=== PATIENT | female | born 1985 | race Caucasian/White ===

== ENCOUNTER 2021-09-20 10:30 | Outpatient (RCR) | payer OTHER, SELFPAY | END 2021-09-20 14:28 | disposition home or self-care (01) | PROVIDERS: Visit Provider Advanced Practice Midwife | DX: N39.3 Stress incontinence (female) (male) (principal); R27.8 Other lack of coordination; R10.2 Pelvic and perineal pain; Z51.89 Encounter for other specified aftercare | CPT/HCPCS: 97110; 97112; 97535 ==

== ENCOUNTER 2023-08-03 08:08 | Outpatient (CLI) | payer OTHER, SELFPAY ==
--- OUTSIDE RECORDS SUMMARY | 2023-08-22 15:45 | XMS_ITS | Clinical Summary ---
Author Organization [employer] [facility] Address [place], [place] [address] Care Team Providers Care Curator Of Education Name Role Phone Pcp, No Primary Care Provider Unavailabl e Allergies Active Allergy Reactions Criticality Noted Date Comments Amoxicillin-Pot Clavulanate Hives 03/06/19 22 Medications Medication Sig Dispensed Refills Start Date End Date Status L.acid/L.casei/B.bif /B.kelvin/FOS (PROBIOTIC BLEND ORAL) Take by mouth. Active doxycycline monohydrate (MONODOX) 100 mg capsuleIndications:S ebaceous cyst of axilla Take 1 Capsule (100 mg) by mouth two times daily. 20 Capsule 01/03/2023 Active multivitamin (MVI) tablet Take 1 Tablet by mouth once daily. 0 01/09/2023 Active clindamycin 1% (CLEOCIN-T) 1 % gelIndications:Hidra denitis suppurativa Apply topically to affected area(s) two times daily. 60 g 11 02/15/2023 Active Encounters Date Type Department Care Team Description 08/01/2023 Lab Requisition [facility] [phone] Nicole Ragsdale CNM from Last 3 Months Immunizations Name Administration Dates Next Due COVID-19 Vaccine Spikevax (M oderna 50mcg/0.5mL) 12YO+ Formula PF 01/09/2023 DTP 07/20/1992, 0,03/31/1988,02/13,1987 HIB PRP-T (ActHIB,Hiberix) 06/11/1998,04/12/1989 Hepatitis B (Peds) 06/11/1998,12/30/1997, 998 Human Papilloma Virus Vaccine 12/25/2007 Influenza, IIV3 (Age >=3 years) 12/05/2013,12/19 Influenza, IIV4 11/19/2022, 2,12/03/2020,12/03,11/22/2016 Influenza,CCIIV4 PRESERV FREE 11/22/2018 MMR 07/20/1992,01/31/1989 Meningococcal Vaccine (Menactra) 08/21/2005 Oral Polio Vaccine 07/20/1992, 0,02/14/1988,12/05 Td (Age >=7 Years) 10/23/1999 Tdap 04/22/2021, 0,01/04/2018,08/21 Family History Medical History Relation Name Comments Cancer-breast Maternal Aunt Bilateral breast cancer Paternal Aunt Relation Name Status Comments Maternal Aunt Alive Paternal Aunt Alive Social History Tobacco Use Types Packs/Day Years Used Date Smoking Tobacco: Never Smokeless Tobacco: Never Alcohol Use Standard Drinks/Week Comments Yes 2 (1 standard drink = 0.6 oz pur e alcohol) PHQ-2 Answer Date Recorded PHQ-2 TOTAL SCORE 0 01/09/2023 Social Connections Answer Date Recorded Frequency of Communication with Friends and Fami ly 0 12/18/2022 Financial Resource Strain Answer Date R ecorded Difficulty of Paying Living Expenses 3 12/18/2022 Difficulty of Paying Living Expenses Not on file 12/18/2022 Food Insecurity Answer Date Recorded Worried About Running Out of Food in the Last Ye ar 1 12/18/2022 Transportation Needs Answer Date Record ed Lack of Transportation (Medical) 1 12/18/2022 Housing Stability Answer Date Recorded Unable to Pay for Housing in the Last Year 1 12/18/2022 Sex and Gender Information Value Date Recorded Sex Assigned at Not on file Gender Identity Not on file Sexual Orientation Not on file Obstetrics History Para Term AB IAB SAB Ectopic Multiple Livin g Live Births 2 1 1 1 1 Date Outcome GA Total Labor Labor/2nd/3rd Weight Sex Type Anes PTL Brianna A1 A5 Name Clin 2019 Term 41w 3d 3.83 kg (8 lb 7 oz) M VAGINA L DANIELLE Epidur al Livin g gareth ano Delivery Location:[facility] Last Filed Vital Signs Vital Sign Reading Time Taken Comments Blood Pressure 106/74 01/09/2023 4:07 PM BLUNGER MACHINE OPERATOR Pulse 64 01/09/2023 4:07 PM BLUNGER MACHINE OPERATOR Temperature 36.6 ??C (97.8 ??F) 12/18/2022 8:04 AM CD T Respiratory Rate 16 12/18/2022 8:04 AM CDT Oxygen Saturation 100% 12/18/2022 8:04 AM CDT Inhaled Oxygen Concentration - - Weight 72.1 kg (159 lb) 01/09/2023 4:07 PM BLUNGER MACHINE OPERATOR Height 167.6 cm (5' 6) 01/09/2023 4:07 PM BLUNGER MACHINE OPERATOR Body Mass Index 25.66 01/09/2023 4:07 PM BLUNGER MACHINE OPERATOR Plan of Treatment Upcoming Encounters Date Type Department Care Team (Late st Contact Info) Description 09/28/2023 3:20 PM CDT Office Visit [facility] [address] [address] Margaret Hernandez MD [address] [address] Health Maintenance Due Date Last Done Comments Influenza for age 9-49 11/04/2023 3, 12/02/2021, 12/03/2020, Additional history exists BMI (ht and wt on same day) for age 18+ 01/10/2024 01/09/2023, 12/18/2022 Depression screening for age 12+ 01/10/2024 01/09/2023 Pap test for age 21-65 07/31/2026 4, 08/01/2023, 12/07/2020, Additional history exists Tetanus booster 04/22/2031 04/22/2021, 09/03, 01/04/2018, Additional history exists Tdap Completed 04/22/2021, 09/03, 01/04/2018, Additional history exists HIV for age 15-65 Completed 01/05/2023 Hepatitis C screening for age 18-79 Completed 01/05/2023 COVID-19 vaccine series Completed 01/10/20 23, 12/02/2021, 12/03/2020, Additional history exists Pneumococcal series for age 6-64 Aged Out No longer eligible based on patient's age to complete this topic Procedures Procedure Name Priority Date/Time Associated Diagnosis Comments LAB TRACKING EVENT Routine 08/01/2023 10 :00 AM CDT ICE GRINDER THIN PREP PAP SCREEN IMAGED Routine 08/01/2023 10:00 AM CDT HPV THIN PREP Routine 08/01/2023 10:00 AM CDT ANTI HIV 1/2 Routine 01/05/2023 9:28 AM CDT Routine general medical examination at a health care facility ANTI HCV Routine 01/05/2023 9:28 AM CDT Routine general medical examination at a health care facility from Last 3 Months or Most Recently Relevant to Health Maintenance Results * LAB TRACKING EVENT (08/01/2023 10:00 AM CDT) Other (Other) Client Collect / Unknown 08/01/2023 10:00 AM CDT 08/01/2023 4:52 PM CDT Nicole Ragsdale CNM LAB BILL ONLY [facility] [address] [place] [address], * ICE GRINDER THIN PREP PAP SCREEN IMAGED (08/01/2023 10:00 AM CDT) Case Report Gynecologic Cytology Report ? Case: [id number] ? Authorizing Provider: ??Nicole Ragsdale CNM ? Collected: ? 08/01/2023 1000 ? Ordering Location: ? [facility] ?Received: ?08/02/2023 1518 ? First Screen: ?Alexandr Nazario ? Specimen: ?ICE GRINDER ThinPrep Vial Screening, Cervical ? 08/13/2023 4:11 PM CDT [facility] INTERPRETATION/ RESULT NEGATIVE FOR INTRAEPITHELIAL LESION OR MALIGNANCY (NIL) (none) 08/13/2023 4:11 PM CDT [facility] IMEN ADEQUACY Satisfactory for evaluation Endocervical component present 08/13/2023 4:11 PM CDT [facility] HPV REQUEST HPV and PAP 08/13/2023 4:11 PM CDT [facility] Date of LMP 07/14/2023 08/13/2023 4:11 PM CDT [facility] LAB[facility] Last Pap Date 12/07/2020 08/13/2023 4:11 PM CDT [facility] Last Pap Result NIL 4:11 PM CDT [facility] Abnormal Pap or Crooks Bx in last 5 years No 08/13/2023 4:11 PM CDT [facility] Menstrual Status Regular Periods 08/13/2023 4:11 PM CDT [facility] Crooks Bx Done Today No 08/13/2023 4:11 PM CDT [facility] Additional Information 08/13/2023 4:11 PM CDT [facility] Comment: Interpreted at [facility] - [address], [place] [address] Automated Review Successful 08/13/2023 4:11 PM CDT [facility] Comment:Specimen processed s uccessfully by automated fiber machine tender device, ThinPrep Imaging System, [employer] ANCILLARY TESTING ICE GRINDER HPV Ordered, Please see separate report 08/13/2023 4:11 PM CDT [facility] Note The pap test is a screening technique, not a diagnostic procedure. It is used primarily to screen for squamous cancers and precursor lesions. Published studies have shown that it is subject to both false negative and false positive results. The pap test should not be used as the sole means to diagnose or exclude pre-malignant and malignant lesions. 08/13/2023 4:11 PM CDT [facility] Other (Cervical) 08/01/2023 10:00 AM CDT 08/02/2023 3:18 PM CDT Nicole Ragsdale [facility] PATHOLOGY/CYTOLOGY [facility] [address] [place] [address], * HPV HIGH RISK (08/01/2023 10:00 AM CDT) TYPE 16 Negative Negative 08/07/2023 8:10 AM CDT [facility] TR[facility] LABORATORY TYPE 18 Negative Negative 08/07/2023 8:10 AM CDT [facility] LAB[facility] OTHER HIGH RISK TYPES Negative Negative 08/07/2023 8:10 AM CDT [facility] Other (Other) 08/01/2023 10: 00 AM CDT 08/06/2023 10:00 AM CDT Narrative [facility] - 08/07/2023 8:10 AM CDT HPV types 16, 18, 31, 33, 35, 39, 45, 51, 52, 56, 58, 59, 66 and 68 DNA were undetectable or below the pre-set threshold. Methodology: Robbie Garcia 4800 HPV Test Nicole SANTOSM MICROBIOLOGY [facility] [address] [place] [address], * ANTI HCV (01/05/2023 9:28 AM CDT) HEPATITIS C ANTIBODY Non-Reacti ve Non-React dorothy 01/05/2023 2:12 PM CDT [facility] Comment:Please note, per www .CDC.gov: If a patient is known to be at high risk of HCV infection, or is symptomatic, and the physician's suspicion of HCV infection is high, HCV RNA testing is often employed and is of diagnostic value, even after an initial negative anti-HCV test result. Blood BLOOD SPECIMEN / Unknown Venipuncture / Unknown 01/05/2023 9:28 AM CDT 01/05/2023 9:29 AM CDT Tali Cabrera MD SEND OUTS Performing Organization Address City/[facility]/ZIP Co de Phone Number [facility] [address] [place] [address], [place] * ANTI HIV 1/2 (01/05/2023 9:28 AM CDT) Pathologist [facility] HIV-1/HIV-2 SCREEN Non-Reacti ve Non-Reacti ve 01/05/2023 2:16 PM CDT [facility] Comment:HIV-1 p24 and HIV-1/ HIV-2 Ab Not Detected. Blood BLOOD SPECIMEN / Unknown Venipuncture / Unknown 01/05/2023 9:28 AM CDT 01/05/2023 9:29 AM CDT Tali Cabrera MD SEND OUTS [facility] [address] [place] [address], from Last 3 Months or Most Recently Relevant to Health Maintenance Care Teams Curator Of Education Relationship Specialty Start Date End Date Pcp, No . PCP - General 12/18/22
--- OUTSIDE RECORDS SUMMARY | 2023-08-22 15:45 | XMS_ITS | Clinical Summary ---
Author Organization [facility] Address [address] [place] [address] Care Team Providers Care Negative Retoucher Name Role Phone Christian Centeno MD Primary Care Provider Allergies Active Allergy Reactions Criticality Noted Date Comments Amoxicillin-Pot Clavulanate Hives 12/27/19 20 Medications Medication Sig Dispensed Refills Start Date End Date Status vitamin iron-folic acid 27mg-0.8mg ( S) 27 mg iron- 800 mcg Tab tablet [ VITAMIN IRON-FOLIC ACID 27MG-0.8MG ( S) 27 MG IRON- 800 MCG TAB TABLET] Take 1 tablet by mouth daily. 12/27/2019 Active ferrous sulfate 325 (65 FE) MG tablet [FERROUS SULFATE 325 (65 FE) MG TABLET] Take 1 tablet by mouth daily with breakfast. 12/27/2019 Active ibuprofen (ADVIL,MOTRIN) 600 MG tabletIndications:Spo ntaneous vaginal delivery, care and examination of lactating mother [IBUPROFEN (ADVIL,MOTRIN) 600 MG TABLET] Take 1 tablet (600 mg total) by mouth every 6 (six) hours as needed for pain. 30 tablet 0 12/29/2019 Active Active Problems Problem Noted Date Diagnosed Date Single liveborn infant delivered vaginally 12/29 12/27/2019 Immunizations Name Administration Dates Next Due COVID-19 MONOVALENT 12+ (Pfizer) 04/23/2020,03/06 Family History Medical History Relation Comments Diabetes Maternal Aunt Hypertension Paternal Uncle Relation Status Comments Maternal Aunt Paternal Uncle Social History Tobacco Use Types Packs/Day Years Used Date Smoking Tobacco: Never Smokeless Tobacco: Never Alcohol Use Standard Drinks/Week Comments Not Currently 0 (1 standard drink = 0.6 oz pur e alcohol) Adolescent Education Answer Date Record ed Getting School Help Needed Not on file 11/25 Sex and Gender Information Value Date Recorded Sex Assigned at Not on file Gender Identity Not on file Sexual Orientation Not on file Last Filed Vital Signs Vital Sign Reading Time Taken Comments Blood Pressure 110/66 01/01/2020 11:06 AM CDT Pulse 76 01/01/2020 11:06 AM CDT Temperature 36.7 ??C (98.1 ??F) 01/01/2020 11:06 AM C DT Respiratory Rate 16 01/01/2020 11:06 AM CDT Oxygen Saturation 98% 01/01/2020 11:06 AM CDT Inhaled Oxygen Concentration - - Weight 90.7 kg (200 lb) 12/27/2019 5:19 PM CDT Height 162.6 cm (5' 4) 12/27/2019 5:19 PM CDT Body Mass Index 34.33 12/27/2019 5:19 PM CDT Plan of Treatment Not on file Care Teams Negative Retoucher Relationship Specialty Start Date End Date [facility] [address] [place] [id number] PCP - General manager copy 12/27/19
--- OUTSIDE RECORDS SUMMARY | 2023-08-22 15:45 | XMS_ITS | Referral Summary ---
Author Organization [facility] Address [address] [place] [address] Care Team Providers Care Seam Finisher Name Role Phone Christian Centeno MD Primary [...] Next Due COVID-19 MONOVALENT 12+ (Pfizer) 04/23/2020,03/06 Social History Tobacco Use Types Packs/Day Years [...] of Treatment Not on file Care Teams Seam Finisher Relationship Specialty Start Date End Date Jacobo, Christian Nair MD [address] [address] PCP - General sheet rock nailer 12/27/19
== END 2023-08-03 08:09 | disposition home or self-care (01) ==
LOC: NFLDREF 08-22 15:44
PROVIDERS: Visit Provider Advanced Practice Midwife
DX: Z13.220 Encounter for screening for lipoid disorders (principal); Z11.59 Encounter for screening for other viral diseases; Z13.29 Encounter for screening for other suspected endocrine disorder
CPT/HCPCS: 80061; 84443; 86704; 86706; 86803; 87340

== ENCOUNTER 2023-10-26 08:59 | Outpatient (CLI) | payer OTHER, SELFPAY ==
--- OUTSIDE RECORDS SUMMARY | 2023-10-26 09:02 | XMS_ITS | Clinical Summary ---
Author Organization [facility] Address [address] [place] [address] Care Team Providers Care Geological Sample Tester Name Role Phone Christian Centeno MD Primary [...] of Treatment Not on file Care Teams Geological Sample Tester Relationship Specialty Start Date End Date [facility] [address] [place] [id number] PCP - General rubber covering machine operator 12/27/19
--- OUTSIDE RECORDS SUMMARY | 2023-10-26 09:02 | XMS_ITS | Clinical Summary ---
Author Organization [employer] [facility] Address [place], [place] [address] Care Team Providers Care Research Neuropsychologist Name Role Phone Pcp, No Primary Care Provider Unavailabl e Allergies Active Allergy Reactions Criticality Noted Date Comments Amoxicillin-Pot Clavulanate Hives 03/06/19 22 Medications Medication Sig Dispensed Refills Start Date End Date Status L.acid/L.casei/B. bif/B.kelvin/FOS (PROBIOTIC BLEND ORAL) Take by mouth. Active doxycycline monohydrate (MONODOX) 100 mg capsuleIndication s:Sebaceous cyst of axilla Take 1 Capsule (100 mg) by mouth two times daily. 20 Capsule 01/03/2023 Active multivitamin (MVI) tablet Take 1 Tablet by mouth once daily. 0 01/09/2023 Active clindamycin 1 % gelIndications:Hi dradenitis suppurativa Apply topically to affected area(s) two times daily. 60 g 11 09/28/2023 Active clindamycin 1% (CLEOCIN-T) 1 % gelIndications:Hi dradenitis suppurativa Apply topically to affected area(s) two times daily. 60 g 11 02/15/2023 09/28/2023 Discontinue d(Reorder (E-cancel not sent)) Encounters Date Type Department Care Team Description 09/28/2023 3:20 PM CDT Office Visit [facility] [address] [address] Magraret Hernandez MD Derm Problem 09/28/2023 Travel 09/26/2023 Travel 08/01/2023 Lab Requisition [facility] [phone] Nicole Ragsdale CNM from Last 3 Months Immunizations Name Administration Dates Next Due COVID-19 Vaccine Spikevax (M oderna 50mcg/0.5mL) 12YO+ [id number] Formula PF 01/09/2023 DTP 07/20/1992, 0,03/31/1988,02/13,1987 HIB [...] Epidur al Livin g gareth ano Delivery Location:[facility] Last Filed Vital Signs Vital Sign Reading Time Taken Comments Blood Pressure 106/74 01/09/2023 4:07 PM DYE REEL OPERATOR HELPER Pulse 64 01/09/2023 4:07 PM DYE REEL OPERATOR HELPER Temperature 36.6 ??C (97.8 ??F) 12/18/2022 8:04 AM CD T Respiratory Rate 16 12/18/2022 8:04 AM CDT Oxygen Saturation 100% 12/18/2022 8:04 AM CDT Inhaled Oxygen Concentration - - Weight 72.1 kg (159 lb) 01/09/2023 4:07 PM DYE REEL OPERATOR HELPER Height 167.6 cm (5' 6) 01/09/2023 4:07 PM DYE REEL OPERATOR HELPER Body Mass Index 25.66 01/09/2023 4:07 PM DYE REEL OPERATOR HELPER Plan of Treatment Health Maintenance Due Date Last Done Comments [...] EVENT Routine 08/01/2023 10 :00 AM CDT PROTECTIVE SIGNAL INSTALLER THIN PREP PAP SCREEN IMAGED Routine 08/01/2023 [...] CDT Nicole Ragsdale CNM LAB BILL ONLY [facility] [address] [place] [id number], * PROTECTIVE SIGNAL INSTALLER THIN PREP PAP SCREEN IMAGED (08/01/2023 10:00 AM CDT) Case Report Gynecologic Cytology Report ? Case: [id number] ? Authorizing Provider: ??Nicole Ragsdale CNM ? Collected: ? 08/01/2023 1000 ? Ordering Location: ? [facility] ?Received: ?08/02/2023 1518 ? First Screen: ?Alexandr Nazario ? Specimen: ?PROTECTIVE SIGNAL INSTALLER ThinPrep Vial Screening, Cervical ? 08/13/2023 4:11 PM CDT [facility] ENTR[facility] LABORATORY INTERPRETATION/ RESULT NEGATIVE FOR INTRAEPITHELIAL LESION OR MALIGNANCY (NIL) (none) 08/13/2023 4:11 PM CDT [facility] EN[facility] LAB[facility] IMEN ADEQUACY Satisfactory for evaluation Endocervical component present 08/13/2023 4:11 PM CDT [facility] LAB[facility] HPV REQUEST HPV and PAP 08/13/2023 4:11 PM CDT [facility]- ENTRAL LABORATORY Date of LMP 07/14/2023 08/13/2023 4:11 PM CDT [facility]C EN[facility]AL LABORATORY Last Pap Date 12/07/2020 08/13/2023 4:11 PM CDT [facility] EN[facility]AL LABORAT[facility] Last Pap Result NIL 4:11 PM CDT [facility] EN[facility] LAB[facility]ATORY Abnormal Pap or [place] Bx in last 5 years No 08/13/2023 4:11 PM CDT [facility]C ENTRAL LABORATORY Menstrual Status Regular Periods 08/13/2023 4:11 PM CDT [facility] ENTR[facility] LABORATORY [place] Bx Done Today No 08/13/2023 4:11 PM CDT [facility]-C ENTRAL LABORATORY Additional Information 08/13/2023 4:11 PM CDT [facility] ENTRPA LABORATORY Comment: Interpreted at [facility] - [address] [facility] [address], [place] [address] Automated Review Successful 08/13/2023 4:11 PM CDT [facility] Comment:Specimen processed s uccessfully by automated cad specialist device, ThinPrep Imaging System, [employer] ANCILLARY TESTING PROTECTIVE SIGNAL INSTALLER HPV Ordered, Please see separate report 08/13/2023 4:11 PM CDT [facility] Note The pap test is a [...] and malignant lesions. 08/13/2023 4:11 PM CDT [facility] Other (Cervical) 08/01/2023 10:00 AM CDT 08/02/2023 3:18 PM CDT Nicole Ragsdale CNM PATHOLOGY/CYTOLOGY [facility] [address] [place] [address], * HPV HIGH RISK (08/01/2023 10:00 AM CDT) TYPE 16 Negative Negative 08/07/2023 8:10 AM CDT [facility] LABORAT[facility] TYPE 18 Negative Negative 08/07/2023 8:10 AM CDT [facility] OTHER HIGH RISK TYPES Negative Negative 08/07/2023 8:10 AM CDT [facility] Other (Other) 08/01/2023 10: 00 AM CDT 08/06/2023 10:00 AM CDT Narrative [facility] - 08/07/2023 8:10 AM CDT HPV types 16, 18, 31, 33, 35, 39, 45, 51, 52, 56, 58, 59, 66 and 68 DNA were undetectable or below the pre-set threshold. Methodology: Robbie Garcia 4800 HPV Test Nicole Ragsdale CNM MICROBIOLOGY [facility] [address] [place] [address], * ANTI HCV (01/05/2023 9:28 AM CDT) HEPATITIS C ANTIBODY Non-Reacti ve Non-React dorothy 01/05/2023 2:12 PM CDT [facility] TR[facility] LAB[facility] Comment:Please note, per www .CDC.gov: [...] Cabrera MD SEND OUTS Performing Organization Address City/[facility] Co de Phone Number [facility] [address] [place] [address], * ANTI HIV 1/2 (01/05/2023 9:28 AM CDT) HIV-1/HIV-2 SCREEN Non-Reacti ve Non-Reacti ve 01/05/2023 2:16 PM CDT [facility] TR[facility] LAB[facility] Comment:HIV-1 p24 and HIV-1/ HIV-2 Ab Not Detected. Blood BLOOD SPECIMEN / Unknown Venipuncture / Unknown 01/05/2023 9:28 AM CDT 01/05/2023 9:29 AM CDT Tali Cabrera MD SEND OUTS Performing Organization Address City/[facility]/ZIP Co de Phone Number [facility] [address] [place] [address], from Last 3 Months or Most Recently Relevant to Health Maintenance Care Teams Research Neuropsychologist Relationship Specialty Start Date End Date Pcp, No . PCP - General 12/18/22
--- OUTSIDE RECORDS SUMMARY | 2023-10-26 09:02 | XMS_ITS | Referral Summary ---
Author Organization [facility] Address [address] [place] [address] Care Team Providers Care Checker Bakery Products Name Role Phone Christian Centeno MD Primary [...] of Treatment Not on file Care Teams Checker Bakery Products Relationship Specialty Start Date End Date Jacobo, Christian Nair MD [address] [address] PCP - General water resource consultant 12/27/19
--- NOTE | 2023-10-26 09:15 | CRLHL7_ITS ---
For Patients: As a result of the Century Cures Act, medical imaging exams and procedure reports are released immediately into your electronic medical record. You may view this report before your referring provider. If you have questions, please contact your health care provider. BILATERAL SCREENING MAMMOGRAM WITH COMPUTER-AIDED DETECTION AND TOMOSYNTHESIS TECHNIQUE: CC and MLO views were obtained. These mammographic images have been obtained using full-field digital technique. These mammographic images were interpreted with the benefit of computer-aided detection. Breast Tomosynthesis was used in this interpretation. COMPARISON FILM: Baseline. FINDINGS: The breasts are heterogeneously dense, which may obscure small masses IMPRESSION: There is no radiographic evidence for malignancy. ASSESSMENT: BI-RADS Category 1: Negative RECOMMENDATION: Routine screening mammogram in 1 year. A lay language report of this examination will be provided to the patient. Medhat Cardoso M.D. Diagnostic Radiologist [email or web address] SHAMA/Dictated by: Medhat Cardoso MD @ 10/26/2023 11:58:00 AM (Electronically Signed)
== END 2023-10-26 09:00 | disposition home or self-care (01) ==
LOC: MAMMO 09:00
PROVIDERS: Visit Provider Advanced Practice Midwife
DX: Z12.31 Encounter for screening mammogram for malignant neoplasm of breast (principal); R92.2 Inconclusive mammogram; Z80.3 Family history of malignant neoplasm of breast
CPT/HCPCS: 77063; 77067

== ENCOUNTER 2024-09-29 11:58 | Outpatient (CLI) | payer OTHER, SELFPAY ==
[2024-09-30 14:49] LABS: HPV Source Cervical
[2024-10-02 13:44] LABS: Pap Test Digital Imaging Done
== END 2024-09-29 11:59 | disposition home or self-care (01) ==
PROVIDERS: Visit Provider Advanced Practice Midwife
DX: Z12.4 Encounter for screening for malignant neoplasm of cervix (principal); Z11.51 Encounter for screening for human papillomavirus (HPV)
CPT/HCPCS: 87624; 87625; 88141; 88142; 88175

== ENCOUNTER 2024-10-31 08:51 | Outpatient (CLI) | payer OTHER, SELFPAY ==
--- NOTE | 2024-10-31 09:15 | CRLHL7_ITS ---
For Patients: As a result of the Cures Act, medical imaging exams and procedure reports are released immediately into your electronic medical record. You may view this report before your referring provider. If you have questions, please contact your health care provider. INDICATION: BILATERAL SCREENING MAMMOGRAM, ASYMPTOMATIC 39 Y/O FEMALE COMPARISON: 10/26/2023 TECHNIQUE: Digital mammogram in CC and MLO projections including computer-aided detection (CAD) and tomosynthesis. BREAST COMPOSITION: The breasts are heterogeneously dense, which may obscure small masses. FINDINGS: No suspicious findings. ASSESSMENT: BI-RADS 1 Negative RECOMMENDATION: Annual screening mammogram. A lay language report of this examination will be provided to the patient. Dictated by: Medhat Cardsoo MD @ 10/31/2024 09:57:41 (Electronically Signed)
== END 2024-10-31 08:52 | disposition home or self-care (01) ==
LOC: MAMMO 08:52
PROVIDERS: Visit Provider Advanced Practice Midwife
DX: Z12.31 Encounter for screening mammogram for malignant neoplasm of breast (principal); R92.333 Mammographic heterogeneous density, bilateral breasts; Z80.3 Family history of malignant neoplasm of breast
CPT/HCPCS: 77063; 77067